=== PATIENT | female | born 1950 | race Caucasian/White ===

== ENCOUNTER → 2016-07-17 | Outpatient (CLI) | payer BC ==
[~2016-07-17] MED LIST: ACET650S10 PO; BLAC40CA2 PO; CHOL100010 PO; CLBPO15 TOP; CLTP PO; HYDR-5688 PO; IBUP-103 PO; LEVO88TA3 PO; MISCCAP80 PO; MULT-506 PO; PRM/45 PO; PSYL48.59 PO; SYN100 PO; TUMERIC PO; [UNRECOGNIZED DRUG - OTHER] PO
[2016-07-17 13:25] LABS: ALT/SGPT 16 U/L (12-78); AST/SGOT 13 U/L (15-37); BLOOD UREA NITROGEN 12 mg/dl (7-18); BUN/CREATININE RATIO 14.6 (10-20); CARBON DIOXIDE 27 mmol/L (21-32); CHLORIDE 105 mmol/L (98-107); CHOLESTEROL 188 mg/dl (0-200); CREATININE 0.81 mg/dl (0.60-1.20); GLUCOSE 86 mg/dl (70-99); POTASSIUM 4.3 mmol/L (3.5-5.1); SODIUM 140 mmol/L (136-145); TRIGLYCERIDES 80 mg/dl (0-150); VERY LOW DENSITY LIPOPROT CALC 16 mg/dl
[2016-07-17 13:35] LABS: ALKALINE PHOSPHATASE 77 U/L (45-117); CHOLESTEROL/HDL RATIO 2.8; HDL CHOLESTEROL 66 mg/dl; LDL CHOLESTEROL CALCULATED 106 mg/dl
== END | disposition home or self-care (01) ==
LOC: C.LABPVFM 07-16 09:24
PROVIDERS: ATTEND Family Medicine
DX: E89.0 Postprocedural hypothyroidism (principal); E78.5 Hyperlipidemia, unspecified

== ENCOUNTER → 2016-10-29 | Outpatient (CLI) | payer OTHER | END | disposition home or self-care (01) | LOC: C.MAMM 10:37 | PROVIDERS: ATTEND Family Medicine | DX: N95.1 Menopausal and female climacteric states (principal) ==

== ENCOUNTER 2017-01-08 04:55 | Observation (INO) | payer OTHER ==
[2016-12-17 14:27] VITALS: BMI 22.0
--- NOTE | 2016-12-17 15:01 | PAT Medication Instructions ---
Service Date Dec 17, 2016. Current Home Medication List Acetaminophen (Tylenol), 1,300 MG PO PRN Black Cohosh (Cimicifuga Racem (Black Cohosh), 40 MG PO BID Calcium/Vitamin D (Caltrate 600 Plus *), 2 TAB PO QPM Cholecalciferol (Vitamin D), 1,000 INTER.UNIT PO QPM Clobetasol Propionate (Clobetasol Propionate), 1 APPLN TOP BID PRN for PRN Ibuprofen Tab (Advil), 600-800 MG PO Q4H PRN for PRN Levothyroxine Sodium (Levothyroxine Sodium), 1 TAB PO QAM Multivitamin (Multivitamin), 1 TAB PO QAM Probiotic Product (Probiotic), 1 CAP PO QPM Psyllium (Metamucil), 1 DOSE PO QPM [Yamileth Reds], 1 DOSE PO DAILY Medication Instructions For Your Scheduled Surgery - Hold the following medications 2 weeks prior to surgery: Black Cohosh (Cimicifuga Racem (Black Cohosh), 40 MG PO BID [Yamileth Reds], 1 DOSE PO DAILY - Hold the following medications 24 hours prior to surgery: Clobetasol Propionate (Clobetasol Propionate), 1 APPLN TOP BID PRN for PRN - Hold the following medications the morning of surgery: Ibuprofen Tab (Advil), 600-800 MG PO Q4H PRN for PRN (otherwise okay to continue per surgeon) Multivitamin (Multivitamin), 1 TAB PO QAM - Take the following medications the morning of surgery with a sip of water OTHERWISE NOTHING TO EAT OR DRINK AFTER MIDNIGHT: Acetaminophen (Tylenol), 1,300 MG PO PRN (may take if needed up to 4 hours prior to surgery) Levothyroxine Sodium (Levothyroxine Sodium), 1 TAB PO QAM - Take the following medications as scheduled the night before surgery: Probiotic Product (Probiotic), 1 CAP PO QPM Psyllium (Metamucil), 1 DOSE PO QPM Acetaminophen (Tylenol), 1,300 MG PO PRN Calcium/Vitamin D (Caltrate 600 Plus *), 2 TAB PO QPM Cholecalciferol (Vitamin D), 1,000 INTER.UNIT PO QPM If you have any questions please call us at [phone] or [phone] or [phone]
[2016-12-17 16:16] LABS: BASO % 0.4 %; BASO ABS # 0.02 K/uL (0-0.2); COMPLETE YES; EOS % 2.7 %; IG% 0.2 %; LYMPH % 29.9 %; LYMPH ABS # 1.44 K/uL (1.2-3.4); MEAN CELL VOLUME 92.8 fL (80-100); MEAN CORPUSCULAR HEMOGLOBIN 31.4 pg (25-34); MEAN CORPUSCULAR HGB CONC 33.9 g/dl (32-36); MONO % 8.3 %; NEUT % 58.5 %; PLATELET COUNT 239 K/uL (130-400); RED BLOOD COUNT 3.88 M/uL (4.2-5.4); WHITE BLOOD COUNT 4.82 K/uL (4.8-10.8)
[2016-12-17 17:10] LABS: BUN/CREATININE RATIO 15.2 (10-20); CALCIUM 9.3 mg/dl (8.5-10.1); CREATININE 0.9 mg/dl (0.60-1.20); POTASSIUM 3.8 mmol/L (3.5-5.1)
[2017-01-08] VITALS (9 sets, daily range): BP systolic 102–143; BP diastolic 61–79; PULSE 55–65; TEMP 36.5–36.7; O2SAT 95–100; Ht 170.2 cm; Wt 65.8 kg
[~2017-01-08] VITALS: Ht 170.2 cm; Wt 65.8 kg
[~2017-01-08 04:55] MED LIST changes: -HYDR-5688 PO; -PRM/45 PO; -SYN100 PO; -TUMERIC PO
[2017-01-08] MEDS ORDERED: CLINDAMYCIN IV 900 MG in DEXTROSE 5% 100ML 100 ML IV SCH (06:00)
[2017-01-08] MEDS ORDERED: SCOPOLAMINE 1.5 MG TDSY TD SCH (06:00)
[2017-01-08] MEDS ORDERED: LACTATED RINGER'S 1000ML 1,000 ML IV SCH ×2 (06:00→07:48)
[2017-01-08] MEDS ORDERED: METHYLENE BLUE 0.5% 10 ML VIAL ONE (06:30)
[2017-01-08] MEDS ORDERED: LIDOCAINE HCL 2% 2 ML VIAL (20MG/ML) ONE (06:32)
[2017-01-08] MEDS ORDERED: PROPOFOL IV EMULSION 10 MG/ML 20 ML VIAL IV ONE (06:32)
[2017-01-08] MEDS ORDERED: MIDAZOLAM HCL 1 MG/ML 2ML VIAL ONE (06:32)
[2017-01-08] MEDS ORDERED: ONDANSETRON INJ 2 MG/ML 2 ML VIAL ONE (06:33)
[2017-01-08] MEDS ORDERED: FENTANYL CITRATE INJ 50 MCG/1 ML 2 ML VIAL ONE ×2 (06:33→07:32)
--- NOTE | 2017-01-08 06:41 | History & Physical Bridge Note ---
H&P Re-Evaluation Bridge Note: I have examined the patient, reviewed the History & Physical and in the interval since the performance of the History & Physical I have noted the following changes of clinical significance: No changes noted
[2017-01-08] MEDS ORDERED: HYDR-5688 PO (06:43)
--- NOTE | 2017-01-08 06:47 | Discharge Instructions ---
Discharge Instructions Date of Service Jan 08, 2017. Admission Reason for Admission: Hemorrhoids Discharge Discharge Diagnosis / Problem: hemorrhoid Discharge Goals Goal(s): Decrease discomfort, Improve function, Improve disease control Activity Recommendations Activity Limitations: as noted below Lifting Limitations: gradually increase as tolerated (take it easy for 1 week) Exercise/Sports Limitations: until after follow-up appointment May Resume Sexual Activity: when tolerated Shower/Bathe: no limitations Driving or Machine Use: resume 1 day after discharge SPECIAL CARE INSTRUCTIONS: * Expect some drainage- you will need a pad for 1-2 weeks use Metamucil 1-2 times per day to avoid constipation * Avoid constipation- may use Senokot S and Milk of Magnesia twice daily as directed on package * May use ibuprofen for pain as tolerated. * Expect some swelling and bruising. Call your doctor if: * Temperature above 101 degrees * Pain not relieved by pain medicine ordered * There is increased drainage or redness from any incision * You have any unanswered questions or concerns [phone]. FOLLOW UP VISIT: If not already scheduled, please call the office for a follow-up visit. for 1-2 weeks- check up OFFICE PHONE NUMBER: Dr. Velazco Office . Current Hospital Diet Patient's current hospital diet: Discharge Diet Recommended Diet: Regular Diet Pending Studies Studies pending at discharge: no Medical Emergencies . Who to Call and When: Medical Emergencies: If at any time you feel your situation is an emergency, please call 911 immediately. . Non-Emergent Contact Non-Emergency issues call your: Primary Care Provider, Surgeon . "Provider Documentation" section prepared by Rico Velazco. . VTE Core Measure Inpt VTE Proph given/why not?: SCD's
[2017-01-08] MEDS: BUPIVACAINE 0.5 % 5 MG/1 ML MPF 30ML VIAL ONE ×2 (07:03→07:42)
[2017-01-08] MEDS ORDERED: SUCCINYLCHOLINE 100MG/5ML SYR IV ONE (07:21)
[2017-01-08] MEDS ORDERED: DEXAMETHASONE SOD INJ 4 MG/ML VIAL ONE (07:21)
[2017-01-08] MEDS ORDERED: EpHEDrine SULFATE INJ 50 MG/ML AMP IV PRN (07:30)
[2017-01-08] MEDS ORDERED: ONDANSETRON INJ 2 MG/ML 2 ML VIAL IV PRN ×2 (07:30→08:00)
[2017-01-08] MEDS ORDERED: ATROPINE SULFATE 0.1 MG/ML 5ML SYR IV PRN (07:30)
[2017-01-08] MEDS ORDERED: FENTANYL CITRATE INJ 50 MCG/1 ML 2 ML VIAL IV PRN (07:30)
[2017-01-08] MEDS ORDERED: BUPIVACAINE 0.5 % 5 MG/1 ML MPF 30ML VIAL INJ ONE (07:40)
--- NOTE | 2017-01-08 07:48 | [facility] Operative Report ---
Operative Report Operative Date Jan 08, 2017. Pre-Operative Diagnosis Hemorrhoid Post-Operative Diagnosis Same as preop Procedure(s) Performed Anal Exam Under Anesthesia, Hemorrhoidectomy- x [address] Rico Velazco Lab Manager Surgeon(s) none Estimated Blood Loss 10 ml Findings - ant and to the Rt - hemorrhoid excised and - Lt lateral excised- excoriated has Rt lateral remaining Specimens A. Hemorrhoids (2) Anesthesia gen Complication(s) None Disposition Recovery Room / PACU I attest to the content of the Intraoperative Record and any orders documented therein. Any exceptions are noted below.
[2017-01-08] MEDS ORDERED: PROMETHAZINE HCL INJ 25 MG in SODIUM CHLORIDE 0.9% 50ML 50 ML IV PRN (08:00)
[2017-01-08] MEDS ORDERED: IBUPROFEN 600 MG TAB PO PRN (08:00)
[2017-01-08] MEDS ORDERED: HYDROmorphone INJ 1 MG/ML SYR IV PRN (08:00)
[2017-01-08] MEDS ORDERED: HYDROmorphone INJ 0.5 MG/0.5 ML SYR IV PRN (08:00)
[2017-01-08] MEDS ORDERED: HYDROCODONE/ACETAMOPHEN 5/325MG TAB PO PRN ×2 (08:00)
[2017-01-08] MEDS ORDERED: KETOROLAC TROMETHAMINE 30 MG/ML VIAL IV. SCH ×2 (08:00→10:00)
--- NOTE | 2017-01-08 08:37 | OPERATIVE REPORT ---
DATE OF OPERATION: 01/08/2017 PREOPERATIVE DIAGNOSIS: Bleeding internal hemorrhoids. POSTOPERATIVE DIAGNOSIS: Same. NAME OF OPERATION: Internal hemorrhoidectomy. STAFF SURGEON: Dr. Velazco. ANESTHESIA: General. PROCEDURE: The patient was brought in the operating room and placed on the operating room table in the prone position after appropriate anesthetic. Her buttocks were taped apart. Her perianal area was prepped and draped in usual fashion. On inspection, the patient had 2 large hemorrhoids with the left side being excoriated and a third hemorrhoid. The hemorrhoids excised were the left lateral hemorrhoid and the anterior and to the right hemorrhoid. She had a right lateral hemorrhoid remaining. These were excised by transecting the base of the hemorrhoid using a LigaSure cautery device and then oversewing the site using 2-0 chromic catgut suture. A small portion of anoderm was left open. Both were done in an identical fashion. The patient had no significant bleeding. Dressing applied externally and then the patient transferred to recovery room in stable condition. I attest to the content of the Intraoperative Record and any orders documented therein. Any exception s are noted below.
--- NOTE | 2017-01-08 08:40 | Anesthesiology Progress Note ---
Anesthesia Post Op Note Date & Time Jan 08, 2017 at 08:40 Vital Signs Pain Intensity: 3 Vital Signs Past 12 Hours Date Time Temp Pulse Resp B/P (MAP) Pulse Ox O2 Delivery O2 Flow Rate FiO2 01/08/17 08:38 36.5 01/08/17 08:36 67 23 100 01/08/17 08:36 66 23 01/08/17 08:33 117/75 01/08/17 08:31 64 24 100 01/08/17 08:31 64 24 01/08/17 08:26 66 20 101/59 100 01/08/17 08:26 65 20 01/08/17 08:25 65 26 100 01/08/17 08:25 67 26 01/08/17 08:22 113/62 01/08/17 08:20 67 19 01/08/17 08:20 68 19 94 01/08/17 08:16 122/72 01/08/17 08:15 68 20 01/08/17 08:15 69 20 100 01/08/17 08:14 68 24 01/08/17 08:14 67 24 100 01/08/17 08:11 124/64 01/08/17 08:09 69 25 01/08/17 08:09 69 25 99 01/08/17 08:06 128/66 01/08/17 08:04 69 19 01/08/17 08:04 71 19 100 01/08/17 08:01 130/69 01/08/17 08:00 114/66 01/08/17 07:59 36.6 71 8 114/66 100 Mask 10 01/08/17 05:42 36.7 55 18 129/70 (89) 100 Room Air Notes Mental Status: alert / awake / arousable, participated in evaluation Pt Amnestic to Procedure: Yes Nausea / Vomiting: adequately controlled Pain: adequately controlled Airway Patency, RR, SpO2: stable & adequate BP & HR: stable & adequate Hydration State: stable & adequate Anesthetic Complications: no major complications apparent
[2017-01-08] MEDS ORDERED: PROMETHAZINE HCL INJ 12.5 MG in SODIUM CHLORIDE 0.9% 50ML 50 ML IV PRN (08:45)
[2017-01-08] MEDS ORDERED: IV FLUIDS COMPLETED PRN (10:15)
[2017-01-08] MEDS: PSYLLIUM 58.6% PWD PACK S\\F PO SCH ×2 (11:34→21:06)
[2017-01-08] MEDS: DOCUSATE SODIUM/SENNA 50/8.6MG TAB PO SCH ×2 (11:35→21:06)
[2017-01-08] MEDS: CHECK SCOPOLAMINE PATCH PLACEMENT SCH (16:20)
[2017-01-09 00:12] VITALS: BP 105/67; PULSE 51; TEMP 36.7; O2SAT 98
[2017-01-09] MEDS: CHECK SCOPOLAMINE PATCH PLACEMENT SCH ×2 (00:21→08:00)
[2017-01-09 03:04] VITALS: BP 116/67; PULSE 58; TEMP 36.6; O2SAT 98
[2017-01-09] MEDS ORDERED: LEVOTHYROXINE 88 MCG TAB PO SCH (06:00)
--- NOTE | 2017-01-09 06:08 | Discharge Summary ---
Discharge Summary Date of Service Jan 09, 2017. Discharge Summary Admission Date: Jan 08, 2017 at 07:56 Discharge Date: Jan 09, 2017 Primary Diagnosis: bleeding hemorrhoids Procedures: internal hemorrhoidectomy Discharge Instructions Last Recorded Wt (Kilograms): 65.800 Allergies: Coded Allergies: Codeine (Verified Allergy, Unknown, HIVES, 01/08/17) Morphine (Verified Allergy, Unknown, FELT WEIRD, 01/08/17) Nickel (Unverified Allergy, Unknown, RASH, 01/08/17) Penicillins (Verified Allergy, Unknown, HIVES,DIARRHEA, 01/08/17) Sulfa Antibiotics (Verified Allergy, Unknown, UNKNOWN, 01/08/17) Cephalosporins (Verified Adverse Reaction, Unknown, DURICEF-SEVERE DIARRHEA, 01/08/17) Special Care: Call your doctor if: * Temperature above 101 degrees * Pain not relieved by pain medicine ordered * There is increased drainage or redness from any incision * You have any unanswered questions or concerns. Avoid all tobacco products. If you need help to stop smoking, call [place] FREE QUITLINE at . This is a free call. Admission Information Admission HPI: Patient was brought into the hospital for elective internal hemorrhoidectomy. She's had a history of treatment and bleeding. She did prior colonoscopy showing large internal hemorrhoids. Hospital Course Patient was electively brought in to the hospital on 01/08/17 and she was taken the operating room where she underwent internal hemorrhoidectomy. She has done well overnight and is felt stable for discharge home today. He'll be followed in the surgical clinic within 1-2 weeks. Total time spent on discharge = This includes examination of the patient, discharge planning, medication reconciliation, and communication with other providers.
[2017-01-09 06:50] VITALS: BP 102/62; PULSE 48; TEMP 36.8; O2SAT 96
--- NOTE | 2017-01-09 08:37 | Anesthesiology Progress Note ---
Anesthesia Post Op Note Date & Time Jan 09, 2017 at 08:37 Vital Signs Pain Intensity: 2 Vital Signs Past 12 Hours Date Time Temp Pulse Resp B/P (MAP) Pulse Ox O2 Delivery O2 Flow Rate FiO2 01/09/17 06:50 36.8 48 17 102/62 (75) 96 Room Air 01/09/17 03:04 36.6 58 14 116/67 (83) 98 Room Air 01/09/17 00:12 36.7 51 14 105/67 (80) 98 Room Air 01/08/17 23:35 Room Air Notes Mental Status: alert / awake / arousable Pt Amnestic to Procedure: Yes Nausea / Vomiting: adequately controlled Pain: adequately controlled Airway Patency, RR, SpO2: stable & adequate BP & HR: stable & adequate Hydration State: stable & adequate
[2017-01-09] MEDS: DOCUSATE SODIUM/SENNA 50/8.6MG TAB PO SCH (09:44)
[2017-01-09] MEDS: PSYLLIUM 58.6% PWD PACK S\\F PO SCH (09:44)
[2017-01-09 09:51] VITALS: BP 102/62; PULSE 48; TEMP 36.8; O2SAT 96
== END 2017-01-09 10:11 | disposition home or self-care (01) ==
LOC: C.ACU 04:55 → C.MSW 07:56 → ENRESERV 08:34
PROVIDERS: ADMIT Surgery; ATTEND Surgery
DX: K64.8 Other hemorrhoids (principal); E78.5 Hyperlipidemia, unspecified; E89.0 Postprocedural hypothyroidism; Z82.49 Family history of ischemic heart disease and other diseases of the circulatory system; Z90.710 Acquired absence of both cervix and uterus; Z82.3 Family history of stroke; Z80.41 Family history of malignant neoplasm of ovary

== ENCOUNTER → 2017-03-27 | Outpatient (CLI) | payer OTHER ==
[~2017-03-27] MED LIST changes: +HYDR-5688 PO
--- NOTE | 2017-03-27 14:35 | MAMMOGRAPHY REPORT ---
BILATERAL DIGITAL SCREENING MAMMOGRAM WITH CAD: 03/27/2017 CLINICAL HISTORY: Routine screening. Patient has no complaints. TECHNIQUE: Current study was also evaluated with a Computer Aided Detection (CAD) system. Bilateral CC and MLO views are obtained. COMPARISON: Comparison is made to exams dated: 08/11/2015 mammogram and 04/17/2012 mammogram - [facility]. BREAST COMPOSITION: There are scattered areas of fibroglandular density in both breasts. FINDINGS: No suspicious masses, calcifications, or areas of architectural distortion are noted in ei ther breast. There has been no significant interval change compared to prior exams. Scattered bilater al benign-appearing calcifications are not significantly changed. IMPRESSION: ACR BI-RADS CATEGORY 2: BENIGN There is no mammographic evidence of malignancy. A 1 year screening mammogram is recommended. The pa tient will receive written notification of the results. Approximately 10% of breast cancers are not detected with mammography. A negative mammographic report should not delay biopsy if a clinically suggestive mass is present. Dai Lopez M.D. ah/:03/27/2017 11:30:19 Pump Tester: Bridgette Simpson, [facility] letter sent: Normal 1/2 BI-RADS Code: ACR BI-RADS Category 2: Benign
== END | disposition home or self-care (01) ==
LOC: C.MAMM 09:57
PROVIDERS: ATTEND Family Medicine
DX: Z12.31 Encounter for screening mammogram for malignant neoplasm of breast (principal)

== ENCOUNTER 2017-08-14 15:54 | Emergency (ER) | payer OTHER ==
[~2017-08-14] VITALS: Ht 170.2 cm; Wt 70.7 kg
[~2017-08-14 15:54] MED LIST changes: -HYDR-5688 PO; -MISCCAP80 PO
[2017-08-14 15:58] VITALS: TEMP 36.4; Ht 170.2 cm; Wt 70.7 kg
[2017-08-14] MEDS ORDERED: CALCTAB7 PO (16:52)
[2017-08-14] MEDS ORDERED: AMBEREN PO (16:52)
[2017-08-14] MEDS ORDERED: ACET-1256 PO (16:52)
[2017-08-14] MEDS ORDERED: CHOL100027 PO (16:52)
--- NOTE | 2017-08-14 17:16 | DIAGNOSTIC IMAGING REPORT ---
LUMBAR SPINE 5 VIEWS CLINICAL HISTORY: Low back pain. No reported history of trauma. FINDINGS: 5 views of the lumbar spine are obtained. No prior studies are available for comparison at the time of dictation. The skeletal structures are osteopenic. There is no radiographic evidence of fracture or malalignment. Vertebral body height and alignment are maintained throughout the lumbar spine. Small anterior osteophytes are seen throughout. The transverse and spinous processes appear intact. There is no evidence of spondylolysis. Mild to moderate disc space narrowing is seen at all lumbar levels. This is greatest at L3-L4 where there is associated endplate sclerosis. The visualized bony pelvis appears intact. Cholecystectomy clips are noted. Numerous phleboliths are identified in the pelvis. There is no bowel obstruction. Moderate to severe constipation is identified. IMPRESSION: 1. No acute bony abnormality is identified in the lumbar spine. 2. Osteopenia and mild spondylotic change as above. 3. Moderate to severe constipation. Dictated: 08/14/2017 4:49 PM Transcribed: 08/14/2017 5:16 PM [email or web address] Electronically signed by: Abdiaziz Maldonado M.D. 08/14/2017 5:18 PM Dictated Date/Time: 08/14/2017 4:49 PM
[2017-08-14] MEDS ORDERED: CYCL10TA6 PO (17:37)
--- NOTE | 2017-08-14 17:38 | EMERGENCY ROOM VISIT NOTE ---
History First contact with patient: 16:02 Chief Complaint: BACK PAIN Stated Complaint: BACK/HIP PAIN History of Present Illness The patient is a 66 year old female who presents to the Emergency Room with complaints of left-sided back pain. The patient states that she had an aching sensation in her left lower back starting this morning. She states the pain significantly worsened when she went to stand up from a chair. She has had a hard time moving because it worsens the pain. She states that she tried a hot washcloth, heating pad, massage and Advil which did improve her pain slightly. She rates her discomfort a 2/10 at this time but states it increases to an 8/10 with movement. She states it is a crampy, twisting pain. It radiates from the left back into the hip. She has had no abdominal pain, urinary symptoms, nausea /vomiting, changes in bowel movements, incontinence, saddle paresthesias, numbness or weakness. She denies history of back problems. She denies any recent injuries to her back. Review of Systems A complete 10 point review of systems was reviewed with the patient with pertinent positives and negatives as per history of present illness. All else were negative. Past Medical/Surgical History Medical Problems: (1) Internal hemorrhoids Social History Smoking Status: Never Smoker Drug Use: none Marital Status: Housing Status: lives with family Current/Historical Medications Scheduled Calcium Carbonate-Vitamin D W/ (Caltrate 600 Plus), 1 TAB PO DAILY Cholecalciferol (Vitamin D 1000 Unit), 1,000 INTER.UNIT PO DAILY Levothyroxine Sodium (Levothyroxine Sodium), 1 TAB PO QAM Multivitamin (Multivitamin), 1 TAB PO QAM Probiotic Product (Probiotic), 1 CAP PO QPM Psyllium (Metamucil), 1 DOSE PO QPM [Amberen], 1 TAB PO DAILY [Yamileth Reds], 1 DOSE PO DAILY Scheduled PRN Acetaminophen (Tylenol), 1,000 MG PO Q6 PRN for Headache or Pain Clobetasol Propionate (Clobetasol Propionate), 1 APPLN TOP BID PRN for PRN Cyclobenzaprine Hcl (Flexeril), 10 MG PO TID PRN for Pain Ibuprofen Tab (Advil), 600-800 MG PO Q4H PRN for PRN Physical Exam Vital Signs Date Time Temp Pulse Resp B/P (MAP) Pulse Ox O2 Delivery O2 Flow Rate FiO2 08/14/17 17:44 75 16 124/79 98 08/14/17 15:58 36.4 69 18 147/79 98 Room Air Physical Exam VITALS: Vitals are noted on the nurse's note and reviewed by myself. Vital signs stable. GENERAL: This is a 66-year-old, in no acute distress, nondiaphoretic, well- developed well-nourished. SKIN: The skin was without rashes. NECK: Supple without nuchal rigidity. HEART: Regular rate and rhythm without murmurs gallops or rubs. LUNGS: Clear to auscultation bilaterally without wheezes, rales or rhonchi. ABDOMEN: Soft, nontender to palpation. MUSCULOSKELETAL: There is mild tenderness to palpation of the left lumbar region. Full range of motion bilateral lower extremities with strength 5/5 bilaterally. Patellar reflexes 2+. NEURO: Patient was alert and oriented to person place and time. Normal sensation bilateral lower extremities. Medical Decision & Procedures ER Provider Diagnostic Interpretation: LUMBAR SPINE 5 VIEWS CLINICAL HISTORY: Low back pain. No reported history of trauma. FINDINGS: 5 views of the lumbar spine are obtained. No prior studies are available for comparison at the time of dictation. The skeletal structures are osteopenic. There is no radiographic evidence of fracture or malalignment. Vertebral body height and alignment are maintained throughout the lumbar spine. Small anterior osteophytes are seen throughout. The transverse and spinous processes appear intact. There is no evidence of spondylolysis. Mild to moderate disc space narrowing is seen at all lumbar levels. This is greatest at L3-L4 where there is associated endplate sclerosis. The visualized bony pelvis appears intact. Cholecystectomy clips are noted. Numerous phleboliths are identified in the pelvis. There is no bowel obstruction. Moderate to severe constipation is identified. IMPRESSION: 1. No acute bony abnormality is identified in the lumbar spine. 2. Osteopenia and mild spondylotic change as above. 3. Moderate to severe constipation. Medical Decision Differential diagnosis includes cauda equina syndrome, cord compression, disc herniation, muscle spasm, lumbar strain, epidural abscess, malignancy, transverse myelitis, urinary tract infection, colitis, diverticulitis, kidney stone, among others. The patient was evaluated as above. Urine dip showed no evidence of infection or kidney stone. L-spine x-rays were performed and read by radiology with no acute findings. Of note, patient was found to be moderately constipated which may be contributing to her discomfort. She did take ibuprofen today which improved symptoms. She was instructed to continue this for pain. She was also given a prescription for Flexeril to take as needed for more severe pain/ spasms. Conservative measures were discussed with the patient. She will follow -up with her primary care provider regarding her back pain. She verbalized understanding of my assessment and treatment plan was discharged home in good condition. Medication Reconcilliation Current Medication List: was personally reviewed by me Blood Pressure Screening Patient's blood pressure: Normal blood pressure Impression Primary Impression: Low back pain Departure Information Dispostion Home / Self-Care Condition GOOD Prescriptions Cyclobenzaprine Hcl (FLEXERIL) 10 Mg Tab 10 MG PO TID Y for Pain for 5 Days, #15 TAB Prov: Sveta Medina .EL 08/14/17 Referrals Marybel Witt M.D. (PCP) Patient Instructions My [facility] Additional Instructions You have been treated in the Emergency Department for Back Pain. You have been prescribed Flexeril (cyclobenzaprine) 2 tab orally, three times per day as needed for pain/spasms. Do NOT exceed 30 mg per day. Take your first dose at bedtime as it can make you drowsy. Always take all medications as prescribed. For pain control, you can use the following [id number] medicines (if >12 yo): - Regular strength (325mg/tab) Tylenol (acetaminophen) 2 tabs every 4-6 hours as needed. Do not exceed 12 tablets in a 24 hour period. Avoid taking more than 4 grams (4000 mg) of Tylenol per day. This includes any other sources of acetaminophen you may take on a regular basis. - Regular strength (200 mg/tab) Advil (ibuprofen) 1-2 tabs every 4-6 hours as needed. Do not exceed a dose of 3200 mg per day. If this is an acute injury, ice can be applied to the area of pain for the first 3 days to help decrease pain and inflammation. After the first 3 days, a heating pad can be used over the area for continued soothing relief. You should schedule a follow-up appointment in 2-3 days with your Primary Care Provider for further evaluation and treatment of your back pain. Return to the Emergency Department if your current symptoms worsen despite treatment course outlined above, or if you develop any of the following symptoms : intractable pain despite aforementioned treatment course, loss of control of your bowel or bladder, numbness or tingling in your groin, or development of a fever. Problem Qualifiers Primary Impression: Low back pain Chronicity: acute Back pain laterality: left Sciatica presence: without sciatica Qualified Codes: M54.5 - Low back pain
[2017-08-14 17:44] VITALS: BP 124/79; PULSE 75; O2SAT 98
[2017-08-14] MEDS ORDERED: MISCCAP80 PO (23:21)
== END 2017-08-14 17:45 | disposition home or self-care (01) ==
LOC: C.EDB 15:54 → C.EDD 17:45
DX: M54.5 Low back pain (principal); Z79.899 Other long term (current) drug therapy; K59.00 Constipation, unspecified

== ENCOUNTER → 2017-09-15 | Outpatient (CLI) | payer OTHER ==
[~2017-09-15] MED LIST changes: +ACET-1256 PO; -ACET650S10 PO; +AMBEREN PO; -BLAC40CA2 PO; +CALCTAB7 PO; -CHOL100010 PO; +CHOL100027 PO; -CLTP PO; +MISCCAP80 PO
[2017-09-15 13:23] LABS: BLOOD UREA NITROGEN 13 mg/dl (7-18); CALCIUM 9.2 mg/dl (8.5-10.1); CARBON DIOXIDE 28 mmol/L (21-32); CHOLESTEROL 205 mg/dl (0-200); CREATININE 0.83 mg/dl (0.60-1.20); GLUCOSE 92 mg/dl (70-99); POTASSIUM 4.3 mmol/L (3.5-5.1); SODIUM 139 mmol/L (136-145)
[2017-09-15 13:34] LABS: LDL CHOLESTEROL CALCULATED 122 mg/dl
== END | disposition home or self-care (01) ==
LOC: C.LABPVFM 09:20
PROVIDERS: ATTEND Family Medicine
DX: E78.5 Hyperlipidemia, unspecified (principal); E03.9 Hypothyroidism, unspecified; K57.30 Diverticulosis of large intestine without perforation or abscess without bleeding

== ENCOUNTER → 2017-12-30 | Outpatient (CLI) | payer OTHER | END | disposition home or self-care (01) | LOC: C.LABPVFM 08:50 | PROVIDERS: ATTEND Family Medicine | DX: E03.9 Hypothyroidism, unspecified (principal) ==